=== PATIENT | male | born 1980 | race Caucasian/White ===

== ENCOUNTER 2024-12-14 09:11 | Outpatient (CLI) | payer OTHER, SELFPAY ==
--- NOTE | 2024-12-14 11:47 | P.ANES_ITS ---
Anesthesia Charges Start Date/Time Anesthesia Start Date: 12/14/24 Anesthesia Start Time: 11:14 Stop Date/Time Anesthesia Stop Date: 12/14/24 Anesthesia Stop Time: 11:45 Coding CPT Codes CPT Codes: JULIO CÉSAR LWR INTST NDAK NOS - 04540 ([id number]) P1 - NORMAL HEALTHY PATIENT, QK - CAMPUS SECURITY DIRECTOR 2-4 CNCRNT ANES PROC, QX - ORTHOPTIST SVC W/ MED DIRECTION
--- NOTE | 2024-12-14 11:47 | P.ANES_ITS ---
Anesthesia Charges Start Date/Time Anesthesia Start Date: 12/14/24 Anesthesia Start Time: 11:14 Stop Date/Time Anesthesia Stop Date: 12/14/24 Anesthesia Stop Time: 11:45 Coding CPT Codes CPT Codes: JULIO CÉSAR LWR INTST NDMS NOS - 41400 ([id number]) P1 - NORMAL HEALTHY PATIENT, QK - NATURAL SCIENCES MANAGER 2-4 CNCRNT ANES PROC, QX - LAND DEVELOPMENT MANAGER SVC W/ MED DIRECTION
--- NOTE | 2024-12-14 11:47 | W.ANESCHARGE ---
Anesthesia Charges Start Date/Time Anesthesia Start Date: 12/14/24 Anesthesia Start Time: 11:14 Stop Date/Time Anesthesia Stop Date: 12/14/24 Anesthesia Stop Time: 11:45 Coding CPT Codes CPT Codes: JULIO CÉSAR LWR INTST NDTX NOS - 82286 ([id number]) P1 - NORMAL HEALTHY PATIENT, QK - STEWARD/STEWARDESS DINING ROOM 2-4 CNCRNT ANES PROC, QX - MANAGER ACTION SVC W/ MED DIRECTION
--- NOTE | 2024-12-14 11:47 | W.ANESCHARGE ---
Anesthesia Charges Start Date/Time Anesthesia Start Date: 12/14/24 Anesthesia Start Time: 11:14 Stop Date/Time Anesthesia Stop Date: 12/14/24 Anesthesia Stop Time: 11:45 Coding CPT Codes CPT Codes: JULIO CÉSAR LWR INTST NDMI NOS - 23480 ([id number]) P1 - NORMAL HEALTHY PATIENT, QK - PLACING JUDGE 2-4 CNCRNT ANES PROC, QX - GRINDER TENDER SVC W/ MED DIRECTION
--- OUTSIDE RECORDS SUMMARY | 2024-12-14 11:59 | XMS_ITS | Clinical Summary ---
Author Organization [facility] Address [address] [place] [address] Care Team Providers Care Personal Banker Name Role Phone Brijesh Casanova MD Primary Care Provider Allergies No known active allergies Medications MULTIVITAMIN TAB take 1 tablet by oral route once daily with food 0 9 Active polyethylene glycol-electroly te (GOLYTELY) 236-22.74-6.74 -5.86 gram suspensionIndica tions:Encounter for screening colonoscopy Drink 2 liters the day before the procedure and 2 liters 6 hours prior to procedure. 4000 mL 4 Active polyethylene glycol-electroly te (GOLYTELY) 236-22.74-6.74 -5.86 gram suspensionIndica tions:Encounter for screening colonoscopy Drink 2 liters (half the bottle) the day before colonoscopy and 2 liters (remaining prep) 6 hours prior to colonoscopy appointment. 4000 mL 4 Active Active Problems Problem Noted Date Diagnosed Date Colon polyp 04/19/2024 Overview (04/19/2024): Colonoscopy 03/2024 large SSA, repeat 6 months at [facility] for possible APC First degree AV block 08/27/2021 Weelizabethkeginger second degree AV block on ZIO 07/202108/27/2021 Resolved Problems Problem Noted Date Diagnosed Date Resolved Date ED (erectile dysfunction) 07/26/2013 Acute myocardial infarction of other specified sites, episode of care unspecified 10/21/2011 02/22/2013 Sore throat 02/07/2009 01/15/2013 Sleep apnea 11/24/2002 11/28/2024 Overview (11/28/2024): Obstructive Sleep Apnea Hypopnea Encounters Date Type Department Care Team Description 12/14/2024 Travel 11/28/2024 1:40 PM CDT Office Visit [address] [place] [address] Lauren Webb NP Pre-Op Exam 11/27/2024 Travel from Last 3 Months Immunizations Immunization Administration Dates Next Due Hepatitis A (Adult) 06/24/2010,08/13/2009 Hepatitis B (Adult) 04/06/2005,12/07/2004,2004 INFLUENZA, IIV3 PF (AGE >= 6 MO) 03/03/2024 Influenza, IIV3 (Age >=3 years) 03/04/20 18,07/04/2013,03/28/2012,2008 Influenza, IIV4 03/05/2023,,04/16/2019,2016,03/06/2015,05/07/2014 Influenza, IIV4 (=>6mos) MDV 04/08/2017 Influenza,CCIIV4 PRESERV FREE 04/04/2020 Td (Age >=7 Years) 04/06/2005 Td, Preservative Free (age > = 7 Years) 04/06/2005 Tdap 03/26/2021,06/18/2011 Yellow Fever (Stamaril) 01/31/2017 Family History Medical History Relation Name Comments Good Health Father Jordan Lane Dementia Maternal Grandfather mi d 80's Other Maternal Grandmother dementi a/ at age 88 Good Health Mother Rosanne Lane Cancer-colon Neg. 1 Cancer-prostate Neg. 2 Heart Disease Neg. 3 Diabetes Neg. 4 Good Health Sister 1 Carol Loreeciek 3 sisters Good Health Sister 2 Alyce Therres Good Health Sister 3 Eliz White Relation Name Status Comments Father [address] Alive good health Maternal Grandfather Maternal Grandmother Mother Rosanne Lane Alive good health Neg. 1 Neg. 2 Neg. 3 Neg. 4 Sister 1 Carol Alvares Sister 2 Alyce Garcia Sister [address] Social History Tobacco Use Types Packs/Day Years Used Date Smoking Tobacco: Never Smokeless Tobacco: Never Tobacco Cessation:Counseling Given: No Alcohol Use Standard Drinks/Week Comments Yes 4 (1 standard drink = 0.6 oz pur e alcohol) socially PHQ-2 Answer Date Recorded PHQ-2 TOTAL SCORE 0 03/27/2024 Social Connections Answer Date Recorded Do you often feel lonely or isolated from those around you? 0 03/26/2024 Financial Resource Strain Answer Date R ecorded Difficulty of Paying Living Expenses 3 03/26/2024 Difficulty of Paying Living Expenses Not on file 03/26/2024 Food Insecurity Answer Date Recorded Do you worry your food will run out before you are able to buy more? 1 03/26/2024 Transportation Needs Answer Date Record ed Does lack of transportation keep you from medica l appointments? 1 03/26/2024 Does lack of transportation keep you from work, meetings or getting things that you need? 1 03/26/2024 Housing Stability Answer Date Recorded What is your housing situation today? 1 03/26/2024 Utilities Answer Date Recorded Do you have trouble paying f or utilities (for example, heat, electricity, water, phone)? 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 Gender Identity Not on file Sexual Orientation Not on file Occupation Industry Job Start Date Job End Date Not on file Not on file Not on file Not on file Obstetrics History Last Filed Vital Signs Vital Sign Reading Time Taken Comments Blood Pressure 104/68 11/28/2024 1:51 PM CDT Pulse 62 11/28/2024 1:51 PM CDT Temperature 36.6 C (97.9 F) 11/28/2024 1:51 PM CDT Respiratory Rate 16 07/30/2021 9:44 AM DISTRICT ENGINEER Oxygen Saturation 99% 11/28/2024 1:51 PM CDT Inhaled Oxygen Concentration - - Weight 84.2 kg (185 lb 9.6 oz) 11/28/2024 1:51 P M CDT Height 178.2 cm (5' 10.16) 03/27/2024 10:07 AM CDT Body Mass Index 26.51 03/27/2024 10:07 AM CDT Plan of Treatment Health Maintenance Due Date Last Done Comments Pneumococcal series for age 6-49 (1 of 2 - PCV) 1997 COVID-19 vaccine series (3 - 2023- season) 2024 04/13/2021, 08/27/2020 BMI (ht and wt on same day) for age 18+ 03/27/2025 03/27/2024, 04/21/2023, 03/16/2022, Additional history exists Depression screening for age 12+ 03/27/2025 03/27/2024, 03/27/2024, 04/21/2023, Additional history exists Lipids for age 45-75 03/27/2029 03/27/2024, 04/21/2023, 03/16/2022, Additional history exists Tetanus booster 03/26/2031 03/26/2021, 05/22, 04/06/2005, Additional history exists Colonoscopy through age 75 12/14/2034 12/14/2024, Hepatitis B series for 19+ Completed 04/06, 12/07/2004, 10/21/2004 Tdap Completed 03/26/2021, 06/18/2011 Influenza Vaccine Completed 03/03/2024, , 04/30/2022, Additional history exists HIV for age 15-65 Completed 03/27/2024, , 03/16/2022, Additional history exists Hepatitis C screening for ag e 18-79 Completed 03/27/2024, 03/16/2022, 03/06/2015, Additional history exists Procedures Procedure Name Priority Date/Time Associated Diagnosis Comments COLONOSCOPY SCREENING Routine 12/14/2024 6:51 AM CDT Encounter for screening colonoscopy HIV 1/2 ANTIGEN/ANTIBODY FOURTH GENERATION W/RFL ([facility]) Routine 03/27/2024 10:37 AM CDT Screen for STD (sexually transmitted disease) ANTI HCV Routine 03/27/2024 10:37 AM CDT Screen for STD (sexually transmitted disease) LIPID PANEL W REFLEX MEASURED LDL Routine 03/27/2024 10:37 AM CDT Lipid screening from Last 3 Months or Most Recently Relevant to Health Maintenance Results * COLONOSCOPY SCREENING (04/18/2024 12:00 AM CDT) Brijesh Casanova MD GI PROCEDURE ORD Final Result * HIV 1/2 AG/AB 4TH GEN W/RFL ([facility]) (03/27/2024 10:37 AM CDT) HIV AG/AB, 4TH GEN NON-REACT FAITH NON-REACT FAITH [facility] Comment: HIV-1 antigen and HIV-1/HIV-2 antibodies were not detected. There is no laboratory evidence of HIV infection. PLEASE NOTE: This information has been disclosed to you from records whose confidentiality may be protected by state law. If your state requires such protection, then the state law prohibits you from making any further disclosure of the information without the specific written consent of the person to whom it pertains, or as otherwise permitted by law. A general authorization for the release of medical or other information is NOT sufficient for this purpose. For additional information please refer to http://education.Innolume/faq/SYF102 (This link is being provided for informational/ educational purposes only.) The performance of this assay has not been clinically validated in patients less than 2 years old. Blood BLOOD SPECIMEN / Unknown 03/27/2024 10:37 AM CDT 03/27/2024 10:37 AM CDT Brijesh Casanova MD SEND OUTS Final Result [facility] [address] [place] [address], [facility] [address] [place] [address] * (ABNORMAL) LIPID PANEL W REFLEX MEASURED LDL (03/27/2024 10:37 AM CDT) CHOLESTEROL, TOTAL 175 <200 mg/dL [facility] HDL CHOLESTEROL 46 > OR = 40 mg/dL [facility] TRIGLYCERIDES 111 <150 mg/dL [facility] LDL-CHOLESTEROL 108(H) mg/dL (calc) [facility] Comment: Reference range: <100 Desirable range <100 mg/dL for primary prevention; <70 mg/dL for patients with CHD or diabetic patients with > or = 2 CHD risk factors. LDL-C is now calculated using the Miles-Moody calculation, which is a validated novel method providing better accuracy than the Friedewald equation in the estimation of LDL-C. Miles RENDON et al. MARIELA. 2013;310(19): 1960-6125 (http://education.iMedia.fm/faq/TFR171) CHOL/HDLC RATIO 3.8 <5.0 (calc) [facility] NON HDL CHOLESTEROL 129 <130 mg/dL (calc) [facility] Comment: For patients with diabetes plus 1 major ASCVD risk factor, treating to a non-HDL-C goal of <100 mg/dL (LDL-C of <70 mg/dL) is considered a therapeutic option. Blood BLOOD SPECIMEN / Unknown 03/27/2024 10:37 AM CDT 03/27/2024 10:37 AM CDT Brijesh Casanova MD CHEMISTRY Final Result [facility] [address] [place] [address], [facility] [address] [place] [address] * ANTI HCV (03/27/2024 10:37 AM CDT) HEPATITIS C ANTIBODY NON-REACTI VE NON-REACT FAITH [facility] Comment: HCV antibody was non-reactive. There is no laboratory evidence of HCV infection. In most cases, no further action is required. However, if recent HCV exposure is suspected, a test for HCV RNA (test code 55182) is suggested. For additional information please refer to http://education.Innolume/faq/BEP29n1 (This link is being provided for informational/ educational purposes only.) Blood BLOOD SPECIMEN / Unknown 03/27/2024 10:37 AM CDT 03/27/2024 10:37 AM CDT Brijesh Casanova MD SEND OUTS Final Result Performing Organization Address City/State/[facility] Co de Phone Number [facility] [address] [place] [address], [facility] [address] [place] [address] from Last 3 Months or Most Recently Relevant to Health Maintenance Insurance [facility] [employer] Care Teams Personal Banker Relationship Specialty Start Date End Date Brijesh Casanova MD [address] [place] [address] PCP - General 04/22/09
== END 2024-12-14 09:12 | disposition home or self-care (01) ==
PROVIDERS: PCP Family Medicine; Visit Provider Internal Medicine Gastroenterology
DX: Z12.11 Encounter for screening for malignant neoplasm of colon (principal); Z86.0101 Personal history of adenomatous and serrated colon polyps; D12.3 Benign neoplasm of transverse colon
CPT/HCPCS: 00811; 00812; 45385; J2704